=== PATIENT | male | born 1970 | race Hispanic/Latino ===

== ENCOUNTER 2025-01-22 09:47 | Outpatient (CLI) | payer SELFPAY | END 2025-01-22 09:48 | disposition home or self-care (01) | LOC: CSHSLEEP 09:47 | PROVIDERS: ATTEND Nurse Practitioner Family | DX: G47.33 Obstructive sleep apnea (adult) (pediatric) (principal); R09.02 Hypoxemia | CPT/HCPCS: 95800 ==